=== PATIENT | female | born 1935 | race Caucasian/White ===

== ENCOUNTER 2020-05-13 12:41 | Inpatient (IN) | payer MEDICARE ==
[~2020-05-13] VITALS: Ht 170.2 cm; Wt 71.2 kg
[~2020-05-13 12:41] MED LIST: ASPIRIN EC81 MG PO; ATIVAN2 MG PO; ATORVASTATIN CA20 MG PO; BREO ELLIPTA 11 EACH INH; BUMETANIDE2 MG PO; ISOSORBIDE MONO60 MG PO; LISINOPRIL5 MG PO; MELATONIN10 M2 PO; NEURONTIN300 MG PO; OCUVITE LUTEIN1 EACH PO; PLAVIX 75 MG TA75 MG PO; POTASSIUM CHLO10 MEQ PO; PREDNISONE10 MG PO; PROTONIX20 MG PO; PULMICORT FLE180 MCG INH; PYRIDOSTIGMINE60 MG PO; TOPROL XL25 MG PO; ZOLOFT100 MG PO
[2020-05-13 13:46] LABS: HEMOGLOBIN 10.2 gm/dl (12.3-15.3); RED BLOOD COUNT 3.53 M/UL (4.00-5.10); WHITE BLOOD COUNT 11.5 K/UL (4.5-11.0)
[2020-05-13] MEDS ORDERED: CYANOCOBAL1000 MCG/1 INJ (22:14)
[2020-05-13] MEDS ORDERED: OMEPRAZOLE20 MG PO (22:15)
[2020-05-13] MEDS ORDERED: NITROSTAT0.4 MG SL (22:16)
[2020-05-13] MEDS ORDERED: ACID CONTROLLER20 MG PO (22:17)
[2020-05-13] MEDS ORDERED: RESTASIS 0.05%1 EACH OP (22:18)
[2020-05-13] MEDS ORDERED: SINGULAIR10 MG PO (22:20)
[2020-05-13] MEDS ORDERED: CENTRUM SILVER1 EAC4 PO (22:39)
[2020-05-13] MEDS ORDERED: ALBUTEROL2.5 MG/3 M INH (22:40)
[2020-05-13] MEDS ORDERED: MUCINEX600 MG PO (22:40)
[2020-05-14 02:54] LABS: HEMOGLOBIN 10.7 gm/dl (12.3-15.3); RED BLOOD COUNT 3.7 M/UL (4.00-5.10)
[2020-05-14 03:02] LABS: WHITE BLOOD COUNT 7.3 K/UL (4.5-11.0)
[2020-05-15 02:40] LABS: HEMOGLOBIN 10.2 gm/dl (12.3-15.3); RED BLOOD COUNT 3.56 M/UL (4.00-5.10); WHITE BLOOD COUNT 6.6 K/UL (4.5-11.0)
[2020-05-16 03:45] LABS: HEMOGLOBIN 9.5 gm/dl (12.3-15.3); RED BLOOD COUNT 3.3 M/UL (4.00-5.10)
[2020-05-16 03:50] LABS: WHITE BLOOD COUNT 4.8 K/UL (4.5-11.0)
[2020-05-17 03:40] LABS: HEMOGLOBIN 9.5 gm/dl (12.3-15.3); RED BLOOD COUNT 3.34 M/UL (4.00-5.10); WHITE BLOOD COUNT 7.5 K/UL (4.5-11.0)
[2020-05-18 12:10] LABS: HEMOGLOBIN 10.4 gm/dl (12.3-15.3); RED BLOOD COUNT 3.64 M/UL (4.00-5.10)
[2020-05-18 12:17] LABS: WHITE BLOOD COUNT 18.6 K/UL (4.5-11.0)
[2020-05-19 04:08] LABS: HEMOGLOBIN 9.6 gm/dl (12.3-15.3); RED BLOOD COUNT 3.36 M/UL (4.00-5.10)
[2020-05-19 04:09] LABS: WHITE BLOOD COUNT 11.7 K/UL (4.5-11.0)
[2020-05-20 05:26] LABS: HEMOGLOBIN 10.7 gm/dl (12.3-15.3); WHITE BLOOD COUNT 14.4 K/UL (4.5-11.0)
[2020-05-20 05:36] LABS: RED BLOOD COUNT 3.77 M/UL (4.00-5.10)
[2020-05-21 03:51] LABS: HEMOGLOBIN 10.9 gm/dl (12.3-15.3); RED BLOOD COUNT 3.81 M/UL (4.00-5.10); WHITE BLOOD COUNT 16.1 K/UL (4.5-11.0)
--- NOTE | 2020-05-21 14:12 | NUR ---
SPOKE TO DR SILVINA SEVILLAOFF PLACEMEMT VERIFIED TO BE IN THE STOMACH. SHE STATES TO START TUBE FEEDING AT A SLOW RATE. SPOKE WITH DR ARIAS THIS MORNING AND HE STATES THAT HE WANTS PHARMACY TO OBTAIN MESTINON IN LIQUID FORM, MACEIL FROM PHARMACY STATES SHE IS WORKING ON TRYING TO GET THAT ORDERED. RT HAS WORKED WITH THE PATIENT AND SHE IS NOW ON AIRVO, SHE HAD WORN BIPAP ALL NIGHT LONG. MORNING MEDS WERE NOT GIVEN DUE TO DOBHOFF OCCLUDED. DOBHOFF HAS SINCE BEEN REPLACED WITH PLACEMENT VERIFIED BY CHEST XRAY. ORAL CARE PROVIDED. PATIENT TURNED Q2HR AND NEEDED. SPOKE WITH FAMILY SEVERAL TIMES TODAY AND UPDATED THEM ON PATIENTS CONDITION. PATIENT LYING IN BED HOB UP, CALL LIGHT WITHIN REACH. RESTRAINTS REMAIN INTACT. NO DISTRESS NOTED AT THIS TIME.
--- NOTE | 2020-05-21 17:35 | NUR ---
PATIENT PULLED OUT DOBHOFF X2 TODAY. RESTRAITS REMAIN INTACT YET PATIENT IS STILL MANAGING TO PULL IT OUT. DR COOL HAS BEEN MADE AWARE AND I WILL ATTEMPT TO REINSERT ANOTHER DOBHOFF AND CONFIRM PLACEMENT WITH CHEST XRAY. PATIENT IS NOT IN ANY DISTERSS AT THIS TIME. BIPAP INTACT AND SATS ARE AT 100%. SPOKE WITH HER AGAIN AND UPDATED HIM ON PATIENTS CONDITION. WILL CONTINUE TO MONITOR PATIENT.
[2020-05-22 06:52] LABS: HEMOGLOBIN 10.1 gm/dl (12.3-15.3); RED BLOOD COUNT 3.55 M/UL (4.00-5.10); WHITE BLOOD COUNT 14.6 K/UL (4.5-11.0)
--- NOTE | 2020-05-22 08:48 | NUR ---
SPOKE WITH NEPHROLOGY AND HOSPITALIST TO MAKE THEM AWARE THAT PATIENT HAS PULLED OUT THE DOBHOFF. MD STATES THEY WILL PUT IN ORDERS FOR D5 AND NORMAL SALINE. SPEECH THERAPY TO WORK WITH PATIENT AND MD STATES SHE CAN RECEIVE MEDS CRUSHED IN APPLESAUCE IF SHE IS ABLE TO TOLERATE IT SO I GAVE THE PATIENT HER MEDS CRUSHED IN APPLESAUCE AND SHE DONE WELL. SHE WAS ASKING FOR SOME ICE CREAM AND I TOLD HER THE SPEECH THERAPIST WOULD BE IN TO WORK WITH HER SOON THEY GOT HERE. SHE TOOK A SMALL DRINK OF WATER AND THERE WAS NO PROBLEM WITH THAT, NO COUGHING OR SHORTNESS OF BREATH. WILL CONTINUE TO MONITOR THE PATIENT AND NOTIFY THE MD OF ANY CHANGES. I SPOKE WITH HER THIS MORNING AND GAVE HIM AN UPDATE REGARDING THE PATIENTS CONDITION WHICH WAS WHAT I HAVE STATED ABOVE. THE PATIENT IS ON BIPAP AT THIS TIME NO DISTRESS NOTED.
[2020-05-23 04:06] LABS: HEMOGLOBIN 9.1 gm/dl (12.3-15.3); WHITE BLOOD COUNT 15.7 K/UL (4.5-11.0)
[2020-05-23 04:07] LABS: RED BLOOD COUNT 3.19 M/UL (4.00-5.10)
--- NOTE | 2020-05-24 14:11 | NUR ---
RN TO SPEAK WITH DR. DE LOS SANTOS TO APPROVE THE PLACEMENT OF A PICC/MIDLINE.
[2020-05-25 02:59] LABS: WHITE BLOOD COUNT 15.7 K/UL (4.5-11.0)
[2020-05-25 03:03] LABS: RED BLOOD COUNT 2.32 M/UL (4.00-5.10)
[2020-05-25 03:04] LABS: HEMOGLOBIN 6.7 gm/dl (12.3-15.3)
[2020-05-25 07:41] LABS: HEMOGLOBIN 6.9 gm/dl (12.3-15.3)
--- NOTE | 2020-05-25 11:46 | NUR ---
PT WAS AWAKE AND TALKATIVE EARLIER THIS A.M. WAS TELLING STAFF THAT TODAY WAS HER BIRTHDAY AND SHE WAS 85 TODAY, PT WAS TURNED AND CHANGED AT APPROXIMATELY 11 A.M., AT 11:10 PT O2 SAT STARTED DROPPING, PT WAS PLACED BACH ON BIPAP, PT WAS ALSO NOTED TO BE NONRESPONSIVE AND HEART RATE DROPPING. DR GRANADOS NOTIFIED AND WAS IN PT ROOM, PT WAS PRONOUNCED AT 11:15, MAYELA WAS NOTIFIED
--- NOTE | 2020-05-25 13:19 | NUR ---
13:00 PT'S FAMILY HERE, INFORMED , DAUGHTER, AND SISTER OF PT'S PASSING. HOME WAS CALLED AT 13:15.
--- NOTE | 2020-05-25 15:27 | NUR ---
HOME HERE TO PICK BODY UP
== END 2020-05-25 11:15 | disposition expired | DRG 177 ==
LOC: ER1 12:41 → CDU 18:05 → PROG CARE 18:05
PROVIDERS: Emergency Medicine; Internal Medicine; ADMIT Family Medicine
PROC: 8E0ZXY6 Isolation (ICD-10-PCS; principal; 2020-05-13)
PROC: XW033E5 Introduction of Remdesivir Anti-infective into Peripheral Vein, Percutaneous Approach, New Technology Group 5 (ICD-10-PCS; 2020-05-13)
PROC: XW13325 Transfusion of Convalescent Plasma (Nonautologous) into Peripheral Vein, Percutaneous Approach, New Technology Group 5 (ICD-10-PCS; 2020-05-14)
DX: U07.1 COVID-19 (principal); J12.82 Pneumonia due to coronavirus disease 2019; J96.21 Acute and chronic respiratory failure with hypoxia; J15.9 Unspecified bacterial pneumonia; I50.23 Acute on chronic systolic (congestive) heart failure; G93.41 Metabolic encephalopathy; J98.11 Atelectasis; E87.2 Acidosis; I13.0 Hypertensive heart and chronic kidney disease with heart failure and stage 1 through stage 4 chronic kidney disease, or unspecified chronic kidney disease; K43.3 Parastomal hernia with obstruction, without gangrene; N17.9 Acute kidney failure, unspecified; E87.0 Hyperosmolality and hypernatremia; G70.00 Myasthenia gravis without (acute) exacerbation; J44.9 Chronic obstructive pulmonary disease, unspecified; Z99.81 Dependence on supplemental oxygen; Z98.49 Cataract extraction status, unspecified eye; Z96.1 Presence of intraocular lens; Z90.49 Acquired absence of other specified parts of digestive tract; Z87.891 Personal history of nicotine dependence; Z88.1 Allergy status to other antibiotic agents; Z91.09 Other allergy status, other than to drugs and biological substances; Z82.49 Family history of ischemic heart disease and other diseases of the circulatory system; I25.2 Old myocardial infarction; D64.89 Other specified anemias; E03.9 Hypothyroidism, unspecified; E78.5 Hyperlipidemia, unspecified; I34.0 Nonrheumatic mitral (valve) insufficiency; K52.9 Noninfective gastroenteritis and colitis, unspecified; I25.5 Ischemic cardiomyopathy; E86.0 Dehydration; N18.30 Chronic kidney disease, stage 3 unspecified
CPT/HCPCS: 36415; 36600; 70450; 71045; 74018; 76705; 80048; 80053; 80202; 82140; 82550; 82553; 82803; 82962; 83605; 83615; 83690; 83735; 83874; 83880; 84100; 84484; 85014; 85018; 85025; 85027; 85610; 85730; 86900; 86901; 86927; 87040; 87081; 90471; 92610; 93005; 94640; 94660; 94760; 94762; 96365; 96366; 96367; 96368; 96372; 96375; 96376; 99285; C9113; J0696; J1100; J1644; J1650; J2185; J2270; J2310; J2405; J2543; J3370; J7030; J7040; J7070; P9047